=== PATIENT | male | born 1975 | race American Indian/Alaskan Native ===

== ENCOUNTER 2018-03-22 22:05 | Emergency (ER) | payer OTHER ==
[2018-03-22 23:15] VITALS: BP 119/64
[2018-03-23] MEDS ORDERED: MOTRIN PO ONE (00:01)
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
== END 2018-03-23 01:23 | disposition home or self-care (01) ==
LOC: ED 22:05
DX: S16.1XXA Strain of muscle, fascia and tendon at neck level, initial encounter (principal); M54.5 Low back pain; F17.200 Nicotine dependence, unspecified, uncomplicated; V89.2XXA Person injured in unspecified motor-vehicle accident, traffic, initial encounter; Y93.89 Activity, other specified; Y92.488 Other paved roadways as the place of occurrence of the external cause; Y99.8 Other external cause status
CPT/HCPCS: 72040; 72070; 72100; 99283